=== PATIENT | male | born 1970 | race Caucasian/White ===

== ENCOUNTER 2016-02-20 11:52 | Emergency (ER) | payer BC ==
[2016-02-20 12:13] VITALS: BP 128/79; PULSE 82; TEMP 98.1
[2016-02-20] MEDS ORDERED: DIPHTH,PERTUSS(ACELL),TET 0.5 ML DISP.SYRIN IM ONE (14:11)
--- NOTE | 2016-02-20 14:16 | PDOC ---
History of Present Illness - General Chief Complaint: Head/Neck problem Stated Complaint: HEAD INJURY Time Seen by Provider: 02/20/16 12:31 - History of Present Illness Initial Comments: 02/20/16 15:41 Chief complaint: Laceration of chin History of present illness: Patient suffers from a seizure disorder, maintained on carbamazepine, stable dose for many years, followed regularly by a neurologist at [facility], drug levels are monitored. However, occasional breakthrough seizures, acid which was December 2015. Today he was alone at home, working in his bedroom, felt his usual aura, loss consciousness, awoke mildly confused with bruises on his face and a laceration of his chin, as well as mild pain in his left shoulder. He is back to normal now, without pain or mental status impairment. Review of systems: As noted above. In addition, denies any recent fevers/chills , headache, sore throat, earache, cough, nausea, vomiting, diarrhea, abdominal pain, chest pain, shortness of breath, urinary tract symptoms, focal neurologic symptoms, visual symptoms, or unsteadiness of gait. Remainder of systems reviewed and found to be negative Past medical history: Seizure disorder, probably epilepsy, infrequent seizures, maintained on stable dose of carbamazepine. No other significant past or present medical or surgical illnesses Social history: No tobacco, no nonprescription drugs including marijuana, cocaine, or amphetamines. Occasional social alcohol, had 3 drinks last night, one more than usual. , stable home and family. Self-employed Family history: Reviewed and noncontributory, including epilepsy and other neurologic diseases, early coronary artery disease, metabolic disease including diabetes, and cancer Physical exam: Alert and oriented 3, well-developed well-nourished, no acute distress, cheerful and cooperative Afebrile, vital signs normal There is a contusion and ecchymosis of the right orbit and right upper eyelid. There is no palpable deformity of the orbit. The conjunctivae are clear. Pupils are round and reactive to light and accommodation, 4 mm. Fundi are benign bilaterally. There are sharp disc margins and good central venous pulsations visualized. EOMs are full without diplopia. Visual maguire are intact. ENT clear. Neck supple without bruit mass or nodes. Full range of motion without pain. No point tenderness or deformity of the vertebral bodies Lungs clear, full breath sounds throughout bilaterally, no chest wall or rib cage tenderness or deformity CV S1 and S2 normal without murmur or gallop pulses. Symmetric no JVD or edema Abdomen benign No pelvic or lower spine tenderness or deformity Neurological C2 to 12 intact. Strength is symmetric. No focal sensory or motor deficits. Gait stable and unimpaired. Cerebellar intact Skin clear, no rash, adequate turgor and mucous membranes. 2.5 cm laceration below the chin, superficial, without bony deformity visible or palpable. Bite is normal. Patient is able to completely open his mouth without restriction and without pain Extremities: There is mild tenderness over the rotator cuff on the left, but full range of motion of the arm, no deformity of the shoulder, and no neurovascular deficits Impression: Superficial chin laceration, contusion of the orbit without sign of eye injury or serious intracranial injury Plan: Repair laceration. Local wound care. Local care for the bruise of the orbit. Head injury instructions. Close observation by . Follow-up immediately if symptoms worsen or new symptoms develop. Patient fully ambulatory and in no pain or other discomfort upon discharge with his to follow-up as directed. Past History - Past Medical History Allergies/Adverse Reactions: Allergies Allergy/AdvReac Type Severity Reaction Status Date / Time No Known Allergies Allergy Verified 02/20/16 11:57 Home Medications: Ambulatory Orders Carbamazepine Xr [Tegretol Xr -] 1,200 mg PO BID 02/20/16 Other medical history: SEIZURE DISORDER - Psycho/Social/Smoking Cessation Hx Anxiety: No Suicidal Ideation: No Smoking History: Never smoked Have you smoked in the past 12 months: No Information on smoking cessation initiated: No Hx Alcohol Use: No Drug/Substance Use Hx: No Substance Use Type: None *Physical Exam - Vital Signs Last Vital Signs Temp Pulse Resp BP Pulse Ox 98.1 F 82 16 128/79 100 02/20/16 12:05 02/20/16 12:05 02/20/16 12:05 02/20/16 12:05 02/20/16 12:05 Medical Decision Making - Medical Decision Making 02/20/16 15:32 Procedure note: Repair of laceration 2.5 cm laceration beneath the chin with irregular margins. Anesthetized with 1% lidocaine plain, with good result. Scrubbed and irrigated copiously with normal saline and explored. Superficial. Closed with interrupted 5-0 nylon sutures with good edge approximation and no space. Dressed with bacitracin. Wound care discussed with the patient and his . Recheck immediately if sign of infection. Follow-up 5 days for suture removal. Patient is ambulatory, neurologically intact, steady gait upon discharge, in no distress, in the company of his , to follow-up immediately if further symptoms develop in the ER, otherwise to see his primary physician in 48 hours for recheck. *DC/Admit/Observation/Transfer Diagnosis at time of Disposition: Head injury Qualifiers: Encounter type: initial encounter Qualified Code(s): S09.90XA - Unspecified injury of head, initial encounter Laceration of face Qualifiers: Encounter type: initial encounter Qualified Code(s): S01.81XA - Laceration without foreign body of other part of head, initial encounter - Discharge Dispostion Disposition: HOME Condition at time of disposition: Stable Admit: No - Patient Instructions Printed Discharge Instructions: DI for Closed Head Injury, DI for Laceration Repair -- Simple Additional Instructions: Keep the wound clean and dry. Dress daily with bacitracin. Recheck immediately if there is any sign of infection. Otherwise have sutures removed in 5-7 days. Ice to the right forehead and orbit. Return to the ER if there are any further symptoms of head injury as described in the instructions. Follow-up with your neurologist as soon as possible, informing him/her of your recurrent seizure, and request that he check your drug levels to ensure that you have adequate medication and your system. Return to ER if there are further symptoms. - Post Discharge Activity Work/School Note: Back to Work
== END 2016-02-20 14:20 | disposition home or self-care (01) ==
LOC: FER 11:52
PROC: 0HQ1XZZ Repair Face Skin, External Approach (ICD-10-PCS; principal; 2016-02-20)
DX: S01.81XA Laceration without foreign body of other part of head, initial encounter (principal); S00.11XA Contusion of right eyelid and periocular area, initial encounter; G40.909 Epilepsy, unspecified, not intractable, without status epilepticus
CPT/HCPCS: 90715; 99283-25